=== PATIENT | male | born 1960 | race Caucasian/White ===

== ENCOUNTER 2020-11-10 12:41 | Inpatient (IN) | payer OTHER ==
[~2020-11-10 12:41] MED LIST: AMLODIPINE BESY10 MG PO; ASPIRIN325 MG PO; BREO ELLIPTA 11 EACH INH; COZAAR100 MG PO; LEVAQUIN750 MG PO; PANTOPRAZOLE SO40 MG PO; PREDNISONE 20MG20 MG PO; PROAIR HFA8.5 GM INH; VIBRAMYCIN100 MG PO
[2020-11-10 13:20] LABS: INR 1.03 (0.9-1.2); PROTHROMBIN TIME 12.8 SECONDS (11.4-13.6); PTT 29.9 SECONDS (22.2-34.7)
[2020-11-10 13:28] LABS: BILIRUBIN - TOTAL 0.5 mg/dL (0.2-1.0); BUN/CREAT RATIO (CALC) 9.9 RATIO; CREATININE 0.71 mg/dL (0.67-1.17); GLOBULIN (CALCULATION) 3.5 g/dL; MAGNESIUM 1.6 mg/dL (1.8-2.4); POTASSIUM 4.9 mmol/L (3.5-5.1); TOTAL PROTEIN 6.5 g/dL (6.4-8.2)
[2020-11-10 13:34] LABS: PRO-BNP 363 pg/mL (<125)
[2020-11-10 13:35] LABS: BASOPHIL 0.3 % (0-2); EOSINOPHIL 0.4 % (0-5); HCT 56.4 % (42.0-52.0); HGB 18.5 g/dl (13.2-18.0); MCH 32.1 pg (25.0-31.0); MCHC 32.8 g/dL (32.0-36.0); MCV 97.7 fL (78.0-100.0); MONOCYTE 10.7 % (0-12); MPV 9.4 fL (6.0-9.5); NRBC 0; PLT 174 K/uL (150-400); RBC 5.77 M/uL (4.70-6.00); RDW 14.5 % (11.5-14.0); WBC 6.7 K/uL (4.0-10.5)
[2020-11-10 13:59] LABS: LACTIC ACID 1.6 mmol/L (0.4-1.9)
[2020-11-10 15:36] LABS: BILIRUBIN NEGATIVE (NEGATIVE); BLOOD NEGATIVE Ery/uL (NEGATIVE); CLARITY CLEAR (CLEAR); COLOR YELLOW (YELLOW); GLUCOSE (U) NORMAL (NORMAL); LEUKOCYTES NEGATIVE Leu/uL (NEGATIVE); NITRITE NEGATIVE (NEGATIVE); PROTEIN 3+ mg/dL (NEGATIVE); SPECIFIC GRAVITY 1.025 (1.001-1.030); UROBILINOGEN 0.2 mg/dL (0.2-1.0)
[2020-11-10 16:13] LABS: BACTERIA TRACE; SQUAMOUS EPITHELIAL CELLS RARE
[2020-11-10] MEDS ORDERED: K-MG CITRATE 91 EACH PO (17:43)
[2020-11-10] MEDS ORDERED: HABITROL14 MG TOP (17:44)
[2020-11-10] MEDS ORDERED: BREO ELLIPTA 11 EACH INH (17:45)
[2020-11-10] MEDS ORDERED: ATROVENT HFA12.9 GM INH (17:46)
--- NOTE | 2020-11-11 00:26 | NUR ---
BEGINNING OF SHIFT PATIENT ON 40% VM. PATIENT CAME TO ER HYPOXIC W/ RESP FALURE COMPENSATED. PATIENT GIVEN 1900 BREATHING TX AND SWITCHED TO 6L OXYMIZER SO PATIENT COULD EAT AFTER TREATMENT, MAINTAINED A SAT OF 92-94% UNTIL PLACED ON HOME CPAP AROUND 2250. 4L BLED INTO HOME UNIT TO ACHIEVE SAT 89-90%. RN CALLED WITH PATIENT ON CONTINOUS PULSE OX ABOUT 20 MINUTES LATER THAT PATIENT HAD DESAT TO 82% TRENDING DOWN TO 78%. WITH RT AT BEDSIDE PATIENT WAS TURNED UP TO 15L BLED IN. FINGERS ON EACH HAND READING DIFFERENTLY WITH SPOT PULSE OX CHECK. LT EARLOBE AND RT GREAT TOE ALSO CHECKED AND BOTH HAD CONSISTENT SAT OF 88%. RT SPOKE WITH YUVAL DOLAN AND ABG DRAWN ON HOME CPAP W/ 15L IF PATIENT WAS MAINTAINING APPROPRIATLY ON HOME EQUIPMENT. PATIENT MORE ACIDOTIC AND ACUTE RESP FAILURE. PATIENT STILL AROUSABLE AND COHERENT DISPITE INCREASE IN CO2 LEVELS. ABG 7.239/86.6/60.6 PO2/37.0 SAT 85% PATIENT PLACED ON HOSPITAL BIPAP 16/8 RATE 16 FIO2 40%. PATIENT SAT 92% PATIENT HAS HAD INSP/EXP WHEEZES THIS SHIFT IN ALL LUNG BERNARDO. TOLERATING HOSPITAL BIPAP WELL. THICK YELLOW SECERETIONS AT TIMES. WILL RECHECK ABG IN AM. KELSI CALLED WITH ABG RESULTS AND DISCUSSED BIPAP. CONTINUE TO MONITOR PATIENT
--- NOTE | 2020-11-11 03:52 | NUR ---
ABG DRAWN SINCE BEING PLACED ON HOSPITAL BIPAP WITH NO BIG CHANGE IN RESULTS. PO2 71 W/ SAT OF 91%. PATIENT SWITCHED TO AVAPS VT 550, RATE 20, EPAP 8 40% PATIENT APPEARED MORE RESTED WITH HOSPITAL BIPAP. DISCUSSED ABG AND BIPAP CHANGE WITH RADHA DOLAN. WILL REDRAW FOR 0600 ON NEW SETTINGS.
--- NOTE | 2020-11-11 06:06 | NUR ---
ABG REDRAWN ON BIPAP SETTING CHANGES OF AVAPS VT 550,RATE 20, EPAP 8, 40% WHILE MAINTAINING SAT 88-92%. PATIENT STILL NOT SHOWING ANY SIGNIFICANT CHANGE WITH VERY LITTLE IMPROVEMENT DESPITE THE BIPAP SETTING CHANGE. PATIENT DID STATE HE FELT MORE RESTED, ALERT/AWAKE THIS AM AND READY TO TAKE OFF BIPAP. PATIENT PLACED BACK ON 6L OXYMIZER FOR DRINK. PATIENT REMAINS TO MAINTAIN SAT OF 90% ON THE 6L OXYMIZER. ABG RESULTS CALLED TO JAE CHANG RN. CONTINUE TO MONITOR PATIENT AND MAINTAIN SAT 88-92% DUE TO CO2 RETENTION. SPOKE WITH KELSI ON 11/11/20 2180
[2020-11-11 06:21] LABS: BASOPHIL 0.2 % (0-2); EOSINOPHIL 0.2 % (0-5); HCT 54.7 % (42.0-52.0); HGB 17.3 g/dl (13.2-18.0); LYMPHOCYTE 5.8 % (15-48); MCH 31.6 pg (25.0-31.0); MCHC 31.6 g/dL (32.0-36.0); MONOCYTE 2.3 % (0-12); MPV 9.4 fL (6.0-9.5); NRBC 0; PLT 162 K/uL (150-400); RBC 5.47 M/uL (4.70-6.00); RDW 14.5 % (11.5-14.0); WBC 4.8 K/uL (4.0-10.5)
[2020-11-11 06:25] LABS: NEUTROPHIL 91.3 % (41-80)
[2020-11-11 06:43] LABS: ALBUMIN 2.5 g/dL (3.4-5.0); BILIRUBIN - TOTAL 0.5 mg/dL (0.2-1.0); BUN/CREAT RATIO (CALC) 14.9 RATIO; CREATININE 0.87 mg/dL (0.67-1.17); GLOBULIN (CALCULATION) 3.1 g/dL; PHOSPHORUS 5.8 mg/dL (2.6-4.7); POTASSIUM 5.5 mmol/L (3.5-5.1); TOTAL PROTEIN 5.6 g/dL (6.4-8.2)
[2020-11-12 07:42] LABS: BASOPHIL 0.1 % (0-2); EOSINOPHIL 0 % (0-5); HCT 56.3 % (42.0-52.0); HGB 17.1 g/dl (13.2-18.0); LYMPHOCYTE 1.8 % (15-48); MCH 31.8 pg (25.0-31.0); MCHC 30.4 g/dL (32.0-36.0); MONOCYTE 3.7 % (0-12); MPV 9.5 fL (6.0-9.5); NRBC 0; PLT 191 K/uL (150-400); RBC 5.37 M/uL (4.70-6.00); RDW 14.7 % (11.5-14.0)
[2020-11-12 07:44] LABS: MCV 104.8 fL (78.0-100.0); NEUTROPHIL 93.3 % (41-80)
[2020-11-12 08:07] LABS: BUN/CREAT RATIO (CALC) 25.6 RATIO; CREATININE 0.9 mg/dL (0.67-1.17); MAGNESIUM 2.7 mg/dL (1.8-2.4); POTASSIUM 5.4 mmol/L (3.5-5.1)
--- NOTE | 2020-11-12 15:00 | NUR ---
11/12/20 Mr. Allen lives at home with his spouse. 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 Mr. Allen has a CPAP, home 02, concentrator and portable tanks. No other needs are anticipated at discharge.
[2020-11-13 05:58] LABS: HCT 53.6 % (42.0-52.0); HGB 16.1 g/dl (13.2-18.0); MCH 31.8 pg (25.0-31.0); MCV 105.7 fL (78.0-100.0); MPV 9.6 fL (6.0-9.5); RBC 5.07 M/uL (4.70-6.00); RDW 14.8 % (11.5-14.0); WBC 13.8 K/uL (4.0-10.5)
[2020-11-13 06:19] LABS: CREATININE 0.75 mg/dL (0.67-1.17); POTASSIUM 5.5 mmol/L (3.5-5.1)
[2020-11-14 05:55] LABS: HCT 51.8 % (42.0-52.0); HGB 16.3 g/dl (13.2-18.0); MCH 32.4 pg (25.0-31.0); MCHC 31.5 g/dL (32.0-36.0); MPV 9.8 fL (6.0-9.5); RBC 5.03 M/uL (4.70-6.00); RDW 14.6 % (11.5-14.0); WBC 9.3 K/uL (4.0-10.5)
[2020-11-14 06:32] LABS: BUN/CREAT RATIO (CALC) 31.3 RATIO; CREATININE 0.67 mg/dL (0.67-1.17); POTASSIUM 5.1 mmol/L (3.5-5.1)
--- NOTE | 2020-11-14 10:54 | NUR ---
11/14/20 Dr. Whitehead has ordered a trilogy. The order and supporting documentation has been sent to [facility] to seek insurance authorization.
[2020-11-15 05:58] LABS: HCT 53.5 % (42.0-52.0); HGB 16.9 g/dl (13.2-18.0); MCH 31.6 pg (25.0-31.0); MCHC 31.6 g/dL (32.0-36.0); MCV 100.2 fL (78.0-100.0); MPV 9.6 fL (6.0-9.5); RBC 5.34 M/uL (4.70-6.00); RDW 14.6 % (11.5-14.0); WBC 7.1 K/uL (4.0-10.5)
[2020-11-15 06:13] LABS: BUN/CREAT RATIO (CALC) 28.3 RATIO; CREATININE 0.53 mg/dL (0.67-1.17)
--- NOTE | 2020-11-15 09:58 | NUR ---
11/15/20 The [facility] were informed of the monthly co-pays for the trilogy if apparoved. Mr. Spencermaríaradha deferred the decision to Ms. Allen. She agreed to pay the deductible and co-pays.
[2020-11-16 06:06] LABS: HCT 53.3 % (42.0-52.0); HGB 17.2 g/dl (13.2-18.0); MCH 31.7 pg (25.0-31.0); MCHC 32.3 g/dL (32.0-36.0); MCV 98.3 fL (78.0-100.0); MPV 9.7 fL (6.0-9.5); RBC 5.42 M/uL (4.70-6.00); RDW 14.4 % (11.5-14.0); WBC 8.4 K/uL (4.0-10.5)
[2020-11-16 06:14] LABS: CREATININE 0.72 mg/dL (0.67-1.17); POTASSIUM 5.1 mmol/L (3.5-5.1)
--- NOTE | 2020-11-16 09:39 | NUR ---
11/16/20 [facility] will set up the Triology and educate patient / spouse on use today. Report given to SHAHEEN Carrington RN and Dr. Whitehead.
[2020-11-19 05:41] LABS: HCT 50.3 % (42.0-52.0); HGB 16.3 g/dl (13.2-18.0); MCH 31.9 pg (25.0-31.0); MCHC 32.4 g/dL (32.0-36.0); MCV 98.4 fL (78.0-100.0); RBC 5.11 M/uL (4.70-6.00); RDW 14.1 % (11.5-14.0); WBC 10.4 K/uL (4.0-10.5)
[2020-11-19 06:10] LABS: BUN/CREAT RATIO (CALC) 35.5 RATIO; CREATININE 0.62 mg/dL (0.67-1.17); POTASSIUM 4.8 mmol/L (3.5-5.1)
[2020-11-19] MEDS ORDERED: MEDROL4 M1 PO (14:02)
[2020-11-19] MEDS ORDERED: SINGULAIR10 MG PO (14:02)
== END 2020-11-19 14:55 | disposition home or self-care (01) | DRG 193 ==
LOC: FER 12:41 → FICU 15:24 → FTCU 15:24 → FICU 11-12 16:00 → FTCU 11-15 09:27 → FICU 11-15 14:49 → FTCU 11-19 14:55
PROVIDERS: Emergency Medicine; Hospitalist; ADMIT Internal Medicine
PROC: 5A09457 Assistance with Respiratory Ventilation, 24-96 Consecutive Hours, Continuous Positive Airway Pressure (ICD-10-PCS; principal; 2020-11-10)
DX: J18.9 Pneumonia, unspecified organism (principal); J96.01 Acute respiratory failure with hypoxia; G93.41 Metabolic encephalopathy; J96.02 Acute respiratory failure with hypercapnia; J44.0 Chronic obstructive pulmonary disease with (acute) lower respiratory infection; J44.1 Chronic obstructive pulmonary disease with (acute) exacerbation; R80.9 Proteinuria, unspecified; F10.10 Alcohol abuse, uncomplicated; F17.210 Nicotine dependence, cigarettes, uncomplicated; Z20.822 Contact with and (suspected) exposure to COVID-19; I10 Essential (primary) hypertension; R19.7 Diarrhea, unspecified; D75.1 Secondary polycythemia; K21.9 Gastro-esophageal reflux disease without esophagitis; E87.5 Hyperkalemia; G47.33 Obstructive sleep apnea (adult) (pediatric); Z99.81 Dependence on supplemental oxygen; Z79.899 Other long term (current) drug therapy; Z79.82 Long term (current) use of aspirin; Z80.51 Family history of malignant neoplasm of kidney; Z80.3 Family history of malignant neoplasm of breast; Z83.3 Family history of diabetes mellitus
CPT/HCPCS: 36415; 36600; 71250; 71275; 80048; 80053; 81001; 82306; 82607; 82803; 82962; 83605; 83735; 83880; 83970; 84100; 84145; 84484; 85025; 85610; 85730; 87040; 87070; 87088; 87205; 93005; 94640; 94660; 94664; 94667; 94668; G0480; J0456; J0696; J1650; J2543; J2930; J3360; J3411; J3475; J7030; J7050; Q9967; U0002

== ENCOUNTER 2021-08-04 12:41 | Emergency (ER) | payer OTHER ==
[~2021-08-04 12:41] MED LIST changes: +ATROVENT HFA12.9 GM INH; +HABITROL14 MG TOP; +K-MG CITRATE 91 EACH PO; +MEDROL4 M1 PO; +SINGULAIR10 MG PO
== END 2021-08-04 15:18 | disposition home or self-care (01) ==
LOC: FER 12:41
DX: S81.812A Laceration without foreign body, left lower leg, initial encounter (principal); I10 Essential (primary) hypertension; J44.9 Chronic obstructive pulmonary disease, unspecified; F17.210 Nicotine dependence, cigarettes, uncomplicated; Z23 Encounter for immunization; W45.8XXA Other foreign body or object entering through skin, initial encounter
CPT/HCPCS: 90471; 90714